=== PATIENT | male | born 2005 | race Caucasian/White ===

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

== ENCOUNTER 2023-01-10 19:11 | Emergency (ER) | payer OTHER, BC ==
--- OUTSIDE RECORDS SUMMARY | 2023-01-10 19:15 | XMS REPORT | Continuity of Care Document ---
:2005 Author Organization [facility] t Address [address] [facility] [address] [place] [address] Care Team Providers Name Role Phone MARGARET FOSTER Primary Care Physician Unavailable ELINOR FOWLER Attending Clinician Unavailable Elinor Sher Attending Clinician Unknown, Attending Attending Clinician Unavailable Doctor Unassigned, Playita Cortada Attending Clinician Unavailable MARGARET FOSTER Attending Clinician Unavailable DANE Attending Clinician Unavailable Ana Lilia Tate Attending Clinician [phone] JUAN Attending Clinician Unavailable Halle Reeves Attending Clinician [phone] DANE Admitting Clinician Unavailable JUAN Admitting Clinician Unavailable Payers Payer Name Policy Type Policy Number Effective Date Expiration Date S severiano [facility] [place] [facility] [id number] 2020 [facility] 00:00:00 [place] [id number] 2020 00:00:00 [facility] [id number] 2018 PPO/POS 00:00:00 [facility] [id number] Problems Condition Condition Condition Status Onset Resolution Last Treating Co mments Source Name Details Category Date Date Treatment Clinician Date 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 Anxiety 9-16 Communi and and 00:00: ty depressive Depressive 00 [facility] disorder Disorder l Clinics Gastroesop Gastroesop Problem Active S wecatrachoy hageal hageal 7-31 Communi reflux Reflux 00:00: ty disease Disease 00 [facility] Scoliosis Scoliosis Problem Active Swe maria fernanda deformity 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 Spine 00:00: ty 00 [facility] Allergies, Adverse Reactions, Alerts Allergy Allergy Status Severity Reaction(s) Onset Inactive Treating Comm ents Source Name Type Date Date Clinician NO KNOWN Drug Active Univers ALLERGIE Class ity of S [facility] Social History Social Habit Start Date Stop Date Quantity Comments Source History of tobacco Passive smoker Un iversity of use [facility] Sexual orientation [facility] Tobacco use and 2022-12-15 2022-12-15 Smokeless Universit y of exposure 00:00:00 00:00:00 tobacco non-user [facility] History of Social 2021-12-15 2021-12-15 [facility] function 00:00:00 00:00:00 [facility] Sex Assigned At [birth year] [facility] 00:00:00 00:00:00 [facility] Smoking Status Start Date Stop Date Source Never smoked tobacco [facility] Medications Ordered Filled Start Stop Current Ordering Indication Dosage Frequency Signature Comments Components Source Medication Medication Date Date Medication? Clinician (SIG) Name Name ondansetron 2022-02- Yes [id number] 4mg Take 1 Univers 4 mg 0-20 10-26 tablet by ity of disintegrat 00:00: 04:59 [place] tablet [place] :00 every 8 Medica l (eight) Branch hours as needed for Nausea and Vomiting (N/V) for up to 5 days. omeprazole Yes 20mg Take 20 mg U nivers 20 mg 4-07 by mouth ity of capsule 14:13: daily. [address] omeprazole Yes 20mg Take 20 mg U nivers 20 mg 4-07 by mouth ity of capsule 14:13: daily. [address] Pepcid 20 Pepcid 20 No 1 Q1D Pepcid 20 [place] mg tablet mg tablet mg tablet Communi Take 1 Take 1 Take 1 ty tablet tablet tablet Hospita every day every day every day l by oral by oral by oral Clinic s route for route for route for 30 days. 30 days. 30 days. promethazin promethazin No 1 Q7H promethazi [place] e 25 mg e 25 mg ne 25 mg Commu ni tablet Take tablet Take tablet ty 1 tablet 1 tablet Take 1 Hospi ta every 6-8 every 6-8 tablet l hours by hours by every 6-8 Cl inics oral route oral route hours by as needed. as needed. oral route as needed. cefdinir cefdinir No 1capsul BID cefdinir [place] 300 mg 300 mg e(s) 300 mg Communi capsule capsule capsule ty Take 1 Take 1 Take 1 Hospita capsule capsule capsule l twice a day twice a day twice a Clinics by oral by oral day by route for route for oral route 10 days. 10 days. for 10 days. prednisone prednisone No 1 BID prednisone [place] 20 mg 20 mg 20 mg Communi tablet Take tablet Take tablet ty 1 tablet 1 tablet Take 1 Hospi ta twice a day twice a day tablet l by oral by oral twice a Clinic s route for 5 route for 5 day by days. days. oral route for 5 days. azithromyci azithromyci No 1 Q1D azithromyc [place] n 500 mg n 500 mg in 500 mg Co mmuni tablet Take tablet Take tablet ty 1 tablet 1 tablet Take 1 Hospi ta every day every day tablet l by oral by oral every day Clin ics route for 5 route for 5 by oral days. days. route for 5 days. azithromyci azithromyci No 1 Q1D azithromyc [place] n 500 mg n 500 mg in 500 mg Co mmuni tablet Take tablet Take tablet ty 1 tablet 1 tablet Take 1 Hospi ta every day every day tablet l by oral by oral every day Clin ics route for 5 route for 5 by oral days. days. route for 5 days. cefdinir cefdinir No 1capsul BID cefdinir [place] 300 mg 300 mg e(s) 300 mg Communi capsule capsule capsule ty Take 1 Take 1 Take 1 Hospita capsule capsule capsule l twice a day twice a day twice a Clinics by oral by oral day by route for route for oral route 10 days. 10 days. for 10 days. Vital Signs Vital Name Observation Time Observation Value Comments Source Systolic blood 2022-12-15 20:30:00 150 mm[Hg] Univer sity of pressure [facility] Diastolic blood 2022-12-15 20:30:00 87 mm[Hg] Unive rsity of pressure [facility] Heart rate 2022-12-15 20:29:00 109 /min Universi ty [facility] Body temperature 2022-12-15 20:28:00 37 Winifred [facility] 2022-12-15 20:28:00 17 /min [facility] Body height 2022-12-15 20:28:00 170.2 cm Universi [facility] Body weight 2022-12-15 20:28:00 64.864 [facility] BMI 2022-12-15 20:28:00 22.40 kg/m2 [facility] Oxygen saturation in 2022-12-15 20:28:00 99 /min [facility] Arterial blood by [facility] [place] Pulse oximetry Branch BP Diastolic 2021-02-02 00:00:00 68 mm[Hg] [facility] s BP Systolic 2021-02-02 00:00:00 118 mm[Hg] [facility] s Body Weight 2021-02-02 00:00:00 2416 [oz_av] [facility] s BP Diastolic 2020-11-02 00:00:00 60 mm[Hg] [facility] s Height 2020-11-02 00:00:00 67 [in_i] [facility] s BMI (Body Mass 2020-11-02 00:00:00 23.3 kg/m2 [facility] s BP Systolic 2020-11-02 00:00:00 109 mm[Hg] [facility] s Body Weight 2020-11-02 00:00:00 2380.8 [oz_av] [facility] s BP Diastolic 2020-06-16 00:00:00 73 mm[Hg] [facility] s BP Systolic 2020-06-16 00:00:00 123 mm[Hg] [facility] s Body Weight 2020-06-16 00:00:00 2486.4 [oz_av] [facility] s BP Diastolic 2020-05-12 00:00:00 73 mm[Hg] [facility] s BP Systolic 2020-05-12 00:00:00 125 mm[Hg] [facility] s Body Weight 2020-05-12 00:00:00 2419.2 [oz_av] [facility] s Procedures Procedure Date / Time Performed Performing Clinician Sour e POCT MOLECULAR FLU 2022-12-15 20:37:00 Unknown, Attending [facility] POCT MOLECULAR STREP 2022-12-15 20:35:00 Unknown, Attending [facility] POCT SARS-COV-2 2022-12-15 20:35:00 Beatriz [facility] ANTIGEN (BINAX NOW) Medical [facility] CONSENT/REFUSAL FOR 2022-12-15 20:13:06 Doctor Unassigned, No [facility] DIAGNOSIS AND [facility] TREATMENT ASSIGNMENT OF BENEFITS 2022-12-15 20:12:44 Doctor Unassigned, No [facility] Remove Tonsils and 2018-02-26 00:00:00 [facility] Adenoids [facility] Plan of Care Planned Activity Planned Date Details Comments Source Diagnostic Test Pending 2021-02-02 rapid strep group [facility] 00:00:00 A, throat [code = [facility] rapid strep group A, throat] Instructions [facility] s Encounters Start End Encounter Admission Attending Care Care Encounter Source Date/Time Date/Time Type Type Clinicians Facility Department ID 2022-12-15 2022-12-15 Outpatient R MARY OHRICHARD [facility] [id number] Univers 15:20:00 [facility]59[facility] 2022-12-15 2022-12-15 Urgent Elinor Fowler [facility] [id number] Univers 15:20:00 15:59:17 Care Unknown, Attending [facility] [id number] itpatricia [facility] [id number] Yousuf as HERLINDA?BLEA [id number] K[place] jerryal [address] MEDICAL OFFICE BUILDING 2022-12-15 2022-12-15 Orders Doctor LENA [id number] Univers 00:00:00 00:00:00 Only Unassigned, AMELIE [id number] ity of [place] Cortada [facility] [id number] Yousuf as [id number] [address] 2021-03-08 2021-03-08 Outpatient R MARLYSXIANG, [facility] [id number] Univers 13:30:00 13:30:00 MARGARET [id number] ity of [facility] 2021-02-24 2021-02-24 Outpatient WATERS_S [facility] [id number] [place] 01:59:00 01:59:00 230 Commun i ty Hospita l Clinics 2021-02-02 2021-02-02 Outpatient WATERS_S [facility] [id number] [place] 03:35:00 03:35:00 208 Commun i ty Hospita l [facility] 2021-02-02 2021-02-02 Outpatient [facility] [id number] 00:00:00 00:00:00 Ana Lilia [id number] 2021-02-02 2021-02-02 [facility] [place] [facility] [place] [id number] [place] 00:00:00 00:00:00 [facility] 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 2020-11-02 2020-11-02 Outpatient Lea [facility] [id number] 00:00:00 00:00:00 Ana Lilia [id number] 2020-10-25 2020-10-25 Outpatient Sang FOSTER [facility] [id number] Univers 09:30:00 09:30:00 MARGARET [id number] [facility] 2020-10-25 2020-10-25 Outpatient Sang FOSTER [facility] [id number] Univers 09:30:00 09:30:00 MARGARET [facility] 2020-10-06 2020-10-06 [facility] [id number] Univers 09:30:00 09:30:00 MARGARET [facility] 2020-10-06 2020-10-06 Outpatient Sang ELIZALDEADELINEXIANG [facility] [id number] Univers 09:30:00 09:30:00 MARGARET [id number] [facility] 2020-08-16 2020-08-16 Outpatient WATERS_S [facility] [id number] [place] 05:17:00 05:17:00 621 Commun i ty Hospita l Clinics 2020-06-25 2020-06-25 Outpatient LEA_S [facility] [id number] [place] 01:03:00 01:03:00 430 Commun i ty Hospita l Clinics 2020-06-16 2020-06-16 Outpatient LEA_S [facility] [id number] [place] 02:46:00 02:46:00 421 Commun i ty Hospita l Clinics 2020-06-16 2020-06-16 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 2020-05-12 2020-05-12 Outpatient WATERS_S [facility] [id number] [place] 10:52:00 10:52:00 317 Commun i ty Hospita [facility] 2020-05-12 2020-05-12 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 2020-03-12 2020-03-12 Outpatient TURNER_FA [facility] [id number] [place] 10:36:00 10:36:00 115 Commun i ty Hospita l Clinics 2020-03-11 2020-03-11 Outpatient TURNER_FA [facility] [id number] [place] 05:57:00 05:57:00 114 Commun i ty Hospita l [facility] 2020-03-11 2020-03-11 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 2020-03-08 2020-03-08 Outpatient TURNER_FA [facility] [id number] [place] 03:46:00 03:46:00 111 [facility] Results Test Description Test Time Test Comments Results Result Comments Source POCT SARS-COV-2 ANTIGEN (BINAX NOW) 2022-12-15 20:51:00 Test Item Value Reference Range Interpretation Comme nts POCT SARS-COV-2 ANTIGEN (test code = 64029-4) Not Detected Not Dete cted On board controls acceptable with C Line (test code = Yes 3574) Lab Interpretation (test code = 24961-0) Normal [facility] MOLECULAR [id number] 20:49:21 Test Item Value Reference Range Interpretation Comments POCT Molecular FluA (test code = Negative Negative 17395-7) POCT Molecular FluB (test code = Negative Negative 47291-5) Lab Interpretation (test code = Normal 60621-6) [facility] MOLECULAR [id number] 20:42:29 Test Item Value Reference Range Interpretation Comments POCT Molecular Strep (test code = Negative Negative 25377-5) Lab Interpretation (test code = Normal 26778-9) [facility] Ag [Presence] in Respiratory specimen by Rapid [id number] 15:22:00 Test Item Value Reference Range Interpretation Comments SARS CoV 2 (test code = SARS CoV 2) [facility], [id number] 14:13:00 Test Item Value Reference Range Interpretation Comments Strep (test code = Strep) positive [facility], [id number] 09:43:00 Test Item Value Reference Range Interpretation Comments Strep (test code = Strep) positive [facility] strep group A, [id number] 16:39:00 Test Item Value Reference Range Interpretation Comments Strep (test code = Strep) positive [facility]-CoV-2 (COVID-19) Ag [Presence] in Respiratory specimen by Rapid [id number] 16:39:00 Test Item Value Reference Range Interpretation Comments SARS CoV 2 (test code = SARS CoV 2) negative [facility]
[2023-01-10 19:55] LABS: Absolute Lymphocytes (CBC) 2.2 K/uL (0.7-4.9); Hematocrit 41.2 % (39.6-49.0); Lymphocytes % 8.7 % (15.3-44.8); MCV 90.7 fL (80-100); MPV 7.8 fL (7.6-11.3); Platelets 326 thou/uL (152-406); RBC Red Blood Cell Count 4.55 M/uL (4.33-5.43)
[2023-01-10] MEDS ORDERED: MORPHINE 4 MG/ML SYR ONE (19:57)
[2023-01-10 20:11] LABS: Potassium 3.3 mEq/L (3.5-5.1)
--- NOTE | 2023-01-10 20:20 | RAD REPORT ---
EXAM DESCRIPTION: CT - Head C Spine Cap Vicky Jay - 01/10/2023 8:04 pm CLINICAL HISTORY: Trauma, head and neck injury. Chest, abdomen and pelvis pain. TRAUMA COMPARISON: No comparisons TECHNIQUE: CT head without contrast. CT cervical spine without contrast with coronal and sagittal reformatted images. CT chest, abdomen and pelvis with coronal and sagittal reformatted images of the spine. All CT scans are performed using dose optimization technique as appropriate and may include automated exposure control or mA/KV adjustment according to patient size. FINDINGS: CT HEAD WITHOUT CONTRAST: Left frontal calvarial fracture with adjacent pneumocephalus. There is approximately 1 and 2 millimet ers of depression of the skull fracture. The fracture extends into the left frontal sinus (frontal an d posterior wall) and left orbit. There is probably a small volume of subdural hematoma subjacent to the calvarial fracture. Thin subdural hematoma present along the cerebral falx. Conveyed to Dr. Juan C yusuf by Dr. Miller at 2007 on 01/10/23. No mass effect or midline shift. No acute large vascular territ ory infarct. Reference facial CT for additional findings of the face . CT CERVICAL SPINE WITHOUT CONTRAST: No fracture or subluxation. The prevertebral soft tissues are normal in thickness. CT CHEST, ABDOMEN, PELVIS: Thorax: Chest Wall: No abnormal mass Lungs: No acute abnormality. Pleura: No effusions or pneumothorax. Promise/Mediastinum: No lymphadenopathy. Aorta/Pulmonary Arteries: Unremarkable Heart: Normal size. Abdomen/Pelvis: Liver: No acute abnormality or suspicious lesions. Biliary: No biliary ductal dilatation. Stomach: No significant focal abnormality. Duodenum: No significant focal abnormality. Pancreas: No significant abnormality. Spleen: No significant abnormality. Adrenal: No suspicious lesions. Kidney/ureter: No hydronephrosis. No renal calculi. Retroperitoneum: No retroperitoneal adenopathy. Vascular: No aneurysm. Bowel: No significant focal abnormality. Peritoneum: No ascites or free air. Bladder: Grossly unremarkable. Reproductive: No adnexal masses. Bones: No acute fracture. Other: n/a IMPRESSION: 1. Left frontal calvarial fracture with mild depression and small volume of intracranial hemorrhage. Note that the fracture extends into the left frontal sinus (frontal and posterior naylor) and some pneumocephalus is present. Reference facial CT for additional fractures. 2. No fracture or malalignment of the cervical spine. 3. No evidence of significant trauma to the chest, abdomen, or pelvis.
--- NOTE | 2023-01-10 20:30 | RAD REPORT ---
EXAM DESCRIPTION: CT - CTFB CLINICAL HISTORY: TRAUMA COMPARISON: No comparisons TECHNIQUE: Axial 2 mm thick images of the face were obtained with sagittal and coronal reconstructio n images. All CT scans are performed using dose optimization technique as appropriate and may include automated exposure control or mA/KV adjustment according to patient size. FINDINGS: Mildly depressed left frontal calvarial fracture which extends into the anterior and poste rior naylor of the left frontal sinus. The fracture extends into the left ethmoid air cells, medial or bital wall, and roof of the orbit . Mild extraconal hemorrhage present along the superior aspect of t he orbit. No intraconal hemorrhage. No evidence of rectus muscle entrapment. There is a fracture involving the right orbital floor which extends in the lateral wall the right max illary sinus. No significant intraconal or extraconal abnormality. No rectus muscle entrapment. Suspected nondisplaced fracture at the bony nasal septum. Possible nondisplaced nasal bone fractures. Hemosinus is present. The mandible is intact. IMPRESSION: Mildly depressed left frontal calvarial fracture with extension into the left frontal si nus, ethmoid air cells, and left bony orbit. Mild extraconal hemorrhage but otherwise the left orbit is intact. Right orbital floor fracture. No intra or extraconal abnormality on the right.
--- NOTE | 2023-01-10 20:33 | RAD REPORT ---
EXAM DESCRIPTION: RAD - Shoulder Left 2 View - 01/10/2023 7:56 pm CLINICAL HISTORY: PAIN COMPARISON: Shoulder Left 2 View dated 11/13/2017 FINDINGS/IMPRESSION: No acute fracture. No malalignment. No significant focal degenerative changes.
--- NOTE | 2023-01-10 20:34 | RAD REPORT ---
EXAM DESCRIPTION: RAD - Ankle Right 3 View - 01/10/2023 7:57 pm CLINICAL HISTORY: PAIN COMPARISON: Ankle Right 3 View dated 07/23/2019 FINDINGS/IMPRESSION: No acute fracture. No malalignment. No significant focal degenerative changes.
--- NOTE | 2023-01-10 20:34 | RAD REPORT ---
EXAM DESCRIPTION: RAD - Hand Left 3 View - 01/10/2023 7:57 pm CLINICAL HISTORY: PAIN COMPARISON: No comparisons FINDINGS/IMPRESSION: No acute fracture. No malalignment. No significant focal degenerative changes. Second distal phalanx partially obscured by the pulse oximeter.
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
--- NOTE | 2023-01-10 20:34 | RAD REPORT ---
EXAM DESCRIPTION: RAD - Foot Right 3 View - 01/10/2023 7:57 pm CLINICAL HISTORY: PAIN COMPARISON: RIGHT FOOT W COMPARISON dated 06/03/2011 FINDINGS/IMPRESSION: No acute fracture. No malalignment. No significant focal degenerative changes.
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
[2023-01-10 21:13] LABS: Blood Morphology Comment NOT SEEN (NOT SEEN); Platelet Estimate ADEQ
[2023-01-10] MEDS ORDERED: NA CHLORIDE 0.9% 100 ML ONE (21:21)
[2023-01-10] MEDS ORDERED: MORPHINE 2 MG/ML SYR ONE (21:46)
[2023-01-10 22:00] VITALS: TEMP 98.1
[2023-01-10 22:04] VITALS: O2SAT 100
[2023-01-10 22:06] VITALS: BP 140/82
== END 2023-01-10 21:52 | disposition short-term general hospital (02) ==
LOC: ER 19:11
DX: S02.0XXB Fracture of vault of skull, initial encounter for open fracture (principal); S06.5X0A Traumatic subdural hemorrhage without loss of consciousness, initial encounter; S02.85XA Fracture of orbit, unspecified, initial encounter for closed fracture; S02.2XXA Fracture of nasal bones, initial encounter for closed fracture; V23.49XA Other motorcycle driver injured in collision with car, pick-up truck or van in traffic accident, initial encounter
CPT/HCPCS: 85025; 80048; 36415; 86900; 86850; 86901; 70450; 72125; 71260; 70486; 76377; 74177; 73130; 73630; 73030; 73610; 96375; 96374; 99285; Q9967; J2270

== ENCOUNTER → 2023-03-14 | Emergency (ER) | payer BC ==
--- NOTE | 2023-03-14 19:15 | RAD REPORT ---
EXAM DESCRIPTION: CT - Head Brain Wo Cont - 03/14/2023 6:55 pm CLINICAL HISTORY: CONFUSED Headache, drowsiness, dizziness COMPARISON: <Comparisons> TECHNIQUE: All CT scans are performed using dose optimization technique as appropriate and may inclu de automated exposure control or mA/KV adjustment according to patient size. FINDINGS: No intracranial hemorrhage, hydrocephalus or extra-axial fluid collection.No areas of brai n edema or evidence of midline shift. The paranasal sinuses and mastoids are clear. The calvarium is intact. IMPRESSION: No acute intracranial abnormality.
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
--- NOTE | 2023-03-14 19:22 | EDPHYS ---
Physician Documentation [facility] Name: Jesus Morton Age: 17 yrs Sex: Male : 2005 Arrival Date: 03/14/2023 Time: 18:11 Bed DX4 Private MD: ED Physician Tom Subramanian Historical: - Allergies: 03/14 18:37 No Known Allergies; iw - Home Meds: 18:37 None [Active]; iw - PMHx: 18:37 shoulder dislocations; iw - PSHx: 18:37 Ankle; Tonsillectomy; iw - Immunization history:: Adult Immunizations unknown. - Social history:: Smoking status: Reported history of juuling and/or vaping. Patient uses alcohol, occasionally. street drugs, marijuana. Vital Signs: 18:36 BP 138 / 87; Pulse 77; Resp 16; Temp 98.4; Pulse Ox 100% on R/A; Weight 63.5 kg; Height iw 5 ft. 7 in. ; 18:36 Body Mass Index 21.93 (63.50 kg, 170.18 cm) - Percentile 40.2 % iw MDM: 18:42 Patient medically screened. rt 03/14 18:42 Order name: CT Head Brain wo Cont; Complete Time: 19:18 rt Administered Medications: No medications were administered Disposition Summary: 03/14/23 19:21 Discharge Ordered Notes: Location: Home rt Problem: new rt Symptoms: have improved rt Condition: Stable rt Diagnosis - Confusion rt Followup: rt - With: Private Physician - When: 2 - 3 days - Reason: Discharge Instructions: - Discharge Summary Sheet rt - Confusion rt Forms: - Medication Reconciliation Form rt - Thank You Letter rt - Antibiotic Education rt - Prescription Opioid Use rt - Patient Portal Instructions rt - Leadership Thank You Letter rt Signatures: Dispatcher [employer] Cristina Julio, JEANNETTE RN iw Tom Subramanian MD MD rt
[2023-03-14 22:36] VITALS: BP 138/87; TEMP 98.4; O2SAT 100
== END ==
LOC: ER 18:11
DX: R41.0 Disorientation, unspecified (principal)
CPT/HCPCS: 70450